=== PATIENT | female | born 2000 | race Caucasian/White ===

== ENCOUNTER 2019-05-01 22:18 | Emergency (ER) | payer BC ==
[2019-05-02 00:34] VITALS: BP 126/91
== END 2019-05-02 15:33 | disposition left against medical advice (07) ==
LOC: ED 22:18
DX: O09.92 Supervision of high risk pregnancy, unspecified, second trimester (principal); Z53.21 Procedure and treatment not carried out due to patient leaving prior to being seen by health care provider

== ENCOUNTER 2019-05-02 10:55 | Emergency (ER) | payer BC ==
[2019-05-02] MEDS ORDERED: NS 0.9% 1000 ML** 1,000 ML IV ONE (11:05)
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
[2019-05-02 11:32] LABS: ABS Basophils 0.1 10^3/ul (0-0.2); ABS Eosinophils 0.2 10^3/ul (0-0.6); ABS Lymphocytes 3.4 10^3/ul (1.0-4.8); ABS Monocytes 0.7 10^3/ul (0-0.8); ABS Neutrophils 6.4 10^3/ul (1.5-7.7); Hematocrit 37 % (35-47); Hemoglobin 12.9 g/dL (12.0-16.0); Lymphocyte % 31.3 %; Mean Corpuscular HGB Conc 35 g/dL (31-36); Mean Corpuscular Hemoglobin 30 pg (27-31); Mean Corpuscular Volume 87 fL (80-97); Mean Platelet Volume 8.7 fL (7.4-10.4); Nucleated Red Blood Cells % 0.1; Platelet Count 273 10^3/uL (150-450); Red Blood Count 4.29 10^6 /uL (3.70-4.87); Red Cell Distribution Width 13 % (10-15); White Blood Count 10.8 10^3/uL (3.5-10.8)
[2019-05-02 11:51] LABS: Albumin 4.2 g/dL (3.2-5.2); Albumin/Globulin Ratio 1.5 (1-3); BUN/Creatinine Ratio 16.1 (8-20); Calcium 9.5 mg/dL (8.6-10.3); EGFR African American 148.5 (>60); EGFR Non-African American 122.7 (>60); Globulin 2.8 g/dL (2-4); Potassium 3.9 mmol/L (3.5-5.0); Total Bilirubin 0.4 mg/dL (0.2-1.0)
[2019-05-02 11:56] LABS: Urine Appearance Clear; Urine Bilirubin Negative (Negative); Urine Blood Negative (Negative); Urine Color Straw; Urine Glucose Negative (Negative); Urine Ketones Negative (Negative); Urine Nitrite Negative (Negative); Urine Protein Negative (Negative); Urine Specific Gravity 1.003 (1.010-1.030); Urine Urobilinogen Negative (Negative)
[2019-05-02 15:38] VITALS: BP 126/67
== END 2019-05-02 15:38 | disposition home or self-care (01) ==
LOC: ED 10:55
DX: R10.9 Unspecified abdominal pain (principal)
CPT/HCPCS: 36415; 76815; 80053; 81003; 83030; 84702; 85025; 86850; 86900; 86901; 96360; 96361; 99282

== ENCOUNTER 2019-10-25 10:08 | Inpatient (IN) | payer BC ==
[2019-10-25] MEDS ORDERED: Buffered Lidocaine 1% SYRIN* 1 ML/SYRINGE INTRADERM ONE (11:27)
[2019-10-25] MEDS ORDERED: Lactated Ringers 1000 ML Bag* 1,000 ML IV ONE (11:27)
[2019-10-25] MEDS ORDERED: Lactated Ringers 1000 ML Bag* 1,000 ML IV SCH ×2 (12:00→19:00)
[2019-10-25 12:08] LABS: Urine Appearance Cloudy; Urine Bilirubin Negative (Negative); Urine Blood 3+ (Negative); Urine Color Yellow; Urine Glucose Negative (Negative); Urine Ketones Negative (Negative); Urine Nitrite Negative (Negative); Urine Protein Negative (Negative); Urine Specific Gravity 1.009 (1.010-1.030); Urine Urobilinogen Negative (Negative)
[2019-10-25 12:14] LABS: Urine Bacteria Absent (Absent); Urine Red Blood Cell Trace(0-2/hpf) (Absent); Urine Squamous Epithelial Cell Present (Absent); Urine White Blood Cell Trace(0-5/hpf) (Absent)
[2019-10-25 12:39] LABS: Urine Benzodiazepine Screen None Detected (None Detect); Urine Opiates Screen None Detected (None Detect)
--- NOTE | 2019-10-25 13:04 | HP ---
General Information - Reason for Visit labor - General Information Maternal Age: 19 Grav: 1 Para: 0 SAB: 0 IEA: 0 Estimated Due Date: 10/21/19 Determined By: LMP Gestational Age in Weeks/Days: 40w4d Maternal Blood Type and Rh: O Positive - Results this Serology/RPR Result: Non-Reactive Rubella Result: Immune HBsAg Result: Negative HIV Result: Negative GBS Culture Result: Negative Past Medical History Pertinent Past Medical History: Non-Contributory Pertinent Past Surgical History: None Pertinent Family History: Non-Contributory - Antepartal Records Antepartal Records: Reviewed, Uncomplicated Review of Systems Constitutional: Uncomfortable CV Complaint: No Respiratory: Shortness of Breath: No Gastrointestinal: No Nausea/Vomiting, Normal Bowel Movement Genitourinary: No Dysuria, No Bleeding, No Leaking Fluid Musculoskeletal: Contractions, Pressure Neurological: No Headache, No Visual Changes Movement: Normal Exam Allergies/Adverse Reactions: Allergies No Known Allergies Allergy (Unverified 02/13/13 15:08) T 97.7 P83 BP 129/69 (149/92) RR 20 02 sat 100% Lab Values - Entire Visit: Laboratory Tests 10/25/19 10/25/19 10:10 10:10 Urine Color Yellow Urine Appearance Cloudy Urine pH 6.0 Ur Specific [place] 1.009 L Urine Protein Negative Urine Ketones Negative Urine Blood 3+ A Urine Nitrate Negative Urine Bilirubin Negative Urine Urobilinogen Negative Ur Leukocyte Esterase 1+ A Urine WBC (Auto) Trace(0-5/hpf) Urine RBC (Auto) Trace(0-2/hpf) Ur Squamous Epith Cells Present A Urine Bacteria Absent Urine Glucose Negative Urine Opiates Screen None detected Ur Barbiturates Screen None detected Ur Phencyclidine Scrn None detected Ur Amphetamines Screen None detected U Benzodiazepines Scrn None detected Urine Cocaine Screen None detected U Cannabinoids Screen None detected - Measurements Height: 5 ft 7.5 in Weight: 185 lb Weight in lbs: [phone] Body Mass Index (BMI): 28.5 Pre- Weight: 132 lb Weight Gained This : 53 lbs and 0 ozs - Exam Breast: Breast Exam Deferred CVA: No CVA Tenderness Extremities: No Edema Heart: Normal Rhythm/Heart Sounds HEENT: No Significant Findings Lungs: Clear Bilaterally Rectal: Rectal Exam Deferred Reflexes: DTR 2+ Thyroid: No Thyromegaly - Abdominal Exam Abdomen Exam: Non-Tender, Fundal Height Consistent with Dates - Ultrasound/Biophysical Profile Ultrasound Status: Not Done Targeted Exam Findings Cervical Exam: 4cm Effacement: 90% Station: 0 Presenting Part: Vertex Membrane Status: Intact Bleeding/Discharge: None EFM Findings - External Monitor Findings Baseline Heart Rate: 135 External Monitor Findings: Accelerations Present, No Pattern of Variable or Late Decelerations, Variability Moderate, Baseline Stable External Monitor Findings Comment: Cat 1 Contractions: Regular, Moderate, 45-90 Seconds - q 5 minute contractions Assessment/Plan - Assessment 19 y/o G1 at 40w4d in labor, uncomplicated Rh+ Rubella Immune GBS Negative - Plan Plan: Admit - Anticipate Vaginal Delivery Plan Comment: BP elevated initially on admission, Urine negative for protein, BP now normalized Will obtain baseline PreE lab evaluation, suspect BP related to discomfort, low suspicion for GHTN/PreE - Date/Time of Admission Date of Admission: 10/25/19 Time of Admission: 12:00
[2019-10-25] MEDS ORDERED: Lidocaine 1% MPF ** 5 ML VIAL ONE (13:11)
[2019-10-25 13:13] LABS: ABS Basophils 0.1 10^3/ul (0-0.2); ABS Lymphocytes 2.4 10^3/ul (1.0-4.8); ABS Monocytes 1.2 10^3/ul (0-0.8); ABS Neutrophils 12.6 10^3/ul (1.5-7.7); Eosinophil % 0.3 %; Hematocrit 37 % (35-47); Hemoglobin 12.6 g/dL (12.0-16.0); Lymphocyte % 14.8 %; Mean Corpuscular HGB Conc 34 g/dL (31-36); Mean Corpuscular Hemoglobin 30 pg (27-31); Mean Corpuscular Volume 88 fL (80-97); Mean Platelet Volume 10.3 fL (7.4-10.4); Platelet Count 285 10^3/uL (150-450); Red Blood Count 4.22 10^6 /uL (3.70-4.87); Red Cell Distribution Width 13 % (10-15); White Blood Count 16.3 10^3/uL (3.5-10.8)
[2019-10-25 13:29] LABS: Albumin 3.7 g/dL (3.2-5.2); Albumin/Globulin Ratio 1.2 (1-3); BUN/Creatinine Ratio 13.4 (8-20); Calcium 9.4 mg/dL (8.6-10.3); EGFR African American 135.8 (>60); EGFR Non-African American 112.2 (>60); Globulin 3.2 g/dL (2-4); Potassium 3.8 mmol/L (3.5-5.0); Total Bilirubin 0.3 mg/dL (0.2-1.0); Total Protein 6.9 g/dL (6.4-8.9); Uric Acid 3.6 mg/dL (2.3-6.6)
[2019-10-25] MEDS ORDERED: Oxytocin in LR* 20 UNITS/1,000 ML BAG IVPB ONE (16:21)
--- NOTE | 2019-10-25 17:04 | PROCNOTE ---
[facility] OB: Delivery Note - Delivery A Date of : 10/25/19 Time of : 16:17 [place] Sex: Male Score 1 Minute: 8 Score 5 Minutes: 9 Gestational Age in Weeks and Days at Delivery: 40 Weeks and 4 Days Delivery Method: Spontaneous Vaginal Labor: Spontaneous Did Patient attempt ?: N/A, No Previous Amniotic Fluid: Meconium Estimated Blood Loss: 250 Anesthesia/Analgesia: None Delivered By: Juan Antonio Koch JR - Nursery Level of Nursery: Regular/Bedside - Perineum Perineal Injury: Abrasion Only - Not Repaired Perineal Injury Comment: Abrasions only, perineum intact, hemostatic, no repair indicated Perineal Repair: None - Events Delivery Events of Note: None Apply - Additional Delivery Notes Additional Delivery Notes: 19 y/o G1 presented to L&D in active labor and 5cm. Labored spontaneously. Progressed rapidly from 8cm to fully dilated. Delivered without epidural or other anesthesia. Uncomplicated over intact perineum. Delayed cord clamping x ~ 5 minutes. Placenta delivered spontaneously, intact. 3VC. Small abrasions only, hemostatic, no repair indicated. Apgars 8 and 9. Mother and doing well at time of this delivery note. DO SALEEM Messer
[2019-10-25] MEDS ORDERED: Lidocaine 1% INJ* 10 MG/ML 30 ML SDV ONE (18:28)
[2019-10-25] MEDS ORDERED: Glycerin ADULT SUPP PR PRN (18:41)
[2019-10-25] MEDS ORDERED: Acetaminophen TAB* 325 MG PO PRN (18:41)
[2019-10-25] MEDS ORDERED: Witch Hazel PAD* JAR TOPICAL PRN (18:41)
[2019-10-25] MEDS ORDERED: Dibucaine 1% 28.35 GM TUBE PR PRN (18:41)
[2019-10-25] MEDS: Docusate CAP* 100 MG PO SCH (20:41)
[2019-10-25] MEDS ORDERED: Simethicone TAB* 80 MG TAB.CHEW PO SCH (21:00)
[2019-10-26 07:03] LABS: ABS Lymphocytes 3.1 10^3/ul (1.0-4.8); ABS Monocytes 1.5 10^3/ul (0-0.8); Eosinophil % 0.2 %; Hematocrit 33 % (35-47); Hemoglobin 11.2 g/dL (12.0-16.0); Lymphocyte % 16.6 %; Mean Corpuscular HGB Conc 34 g/dL (31-36); Mean Corpuscular Hemoglobin 30 pg (27-31); Mean Corpuscular Volume 90 fL (80-97); Mean Platelet Volume 10.1 fL (7.4-10.4); Platelet Count 235 10^3/uL (150-450); Red Cell Distribution Width 14 % (10-15); White Blood Count 18.7 10^3/uL (3.5-10.8)
[2019-10-26] MEDS ORDERED: Ferrous Gluconate TAB* 324 MG TAB PO SCH (09:00)
[2019-10-26] MEDS: Docusate CAP* 100 MG PO SCH ×3 (09:57→20:15)
[2019-10-26] MEDS: Ibuprofen TAB* 600 MG PO PRN ×2 (09:57→18:14)
[2019-10-27 08:02] VITALS: BP 133/75
[2019-10-27] MEDS: Ibuprofen TAB* 600 MG PO PRN (10:18)
[2019-10-27] MEDS: Docusate CAP* 100 MG PO SCH (10:18)
== END 2019-10-27 13:20 | disposition home or self-care (01) | DRG 560 ==
LOC: MCHOBOUT 10:08 → MCHOB 11:34
PROVIDERS: ADMIT Obstetrics & Gynecology; ATTEND Obstetrics & Gynecology
PROC: 10E0XZZ Delivery of Products of Conception, External Approach (ICD-10-PCS; principal; 2019-10-25)
PROC: 10907ZC Drainage of Amniotic Fluid, Therapeutic from Products of Conception, Via Natural or Artificial Opening (ICD-10-PCS; 2019-10-25)
DX: O48.0 Post-term pregnancy (principal); Z37.0 Single live birth; Z3A.40 40 weeks gestation of pregnancy; O70.0 First degree perineal laceration during delivery; O77.0 Labor and delivery complicated by meconium in amniotic fluid
CPT/HCPCS: 36415; 80053; 80307; 81003; 81015; 84550; 85025; 86850; 86900; 86901; 87086; A9270-GY; G0480